=== PATIENT | female | born 1930 | race Caucasian/White ===

== ENCOUNTER 2019-10-13 06:23 | Outpatient (CLI) | payer MEDICARE, OTHER ==
[2019-10-13 12:49] LABS: #Monocytes 0.9 thou/uL (0.11-0.59); #Neutrophils 7.1 thou/uL (1.40-6.50); %Basophils 0.4 % (0.0-1.0); %Eosinophils 0.1 % (0.0-10.0); %Lymphocytes 10.5 % (21.0-51.0); %Monocytes 10.1 % (0.0-10.0); %Neutrophils 78.8 % (42.0-75.0); Hemoglobin 11.7 g/dL (12.0-16.0); Mean Corpuscular HGB CONC 32.8 g/dL (32.0-36.0); Mean Corpuscular Hemoglobin 31.3 pg (27.0-31.0); Mean Corpuscular Volume 95.5 fL (78.0-98.0); Mean Platelet Volume 7.9 fL (7.4-10.4); Platelet Count 206 thou/uL (130-400); RBC Distribution Width 13.2 % (11.5-14.5); Red Blood Cell (RBC) Count 3.74 mill/uL (4.20-5.40)
[2019-10-13 13:07] LABS: Anion Gap 12 mmol/L (10-20); BUN (Urea Nitrogen) 20 mg/dL (9.8-20.1); Calc. Creatinine Clearance 0 mL/min (70-130); Calcium 9.1 mg/dL (7.8-10.44); Carbon Dioxide 27 mmol/L (23-31); Chloride 98 mmol/L (98-107); Estimated GFR-MDRD 82; Glucose 92 mg/dL (83-110); Potassium 4.7 mmol/L (3.5-5.1); Sodium 132 mmol/L (136-145)
[2019-10-13 18:46] LABS: SARS-CoV-2 MS2 Positive; SARS-CoV-2 N Gene Negative; SARS-CoV-2 S Gene Negative; SARS-CoV-2 orf1ab Negative
--- NOTE | 2019-10-13 21:14 | EKG ---
Test Reason : Blood Pressure : / mmHG Vent. Rate : 071 BPM Atrial Rate : 071 BPM P-R Int : 148 ms QRS Dur : 130 ms QT Int : 416 ms P-R-T Axes : 070 045 032 degrees QTc Int : 452 ms Normal sinus rhythm Possible Left atrial enlargement Right bundle branch block Abnormal ECG No previous ECGs available Confirmed by Georgia RADFORD ([id number]) on 10/13/2019 9:13:24 PM Referred By: ADALBERTO Confirmed By:Georgia RADFORD
== END 2019-10-13 06:24 | disposition home or self-care (01) ==
LOC: LABBT 06:23
PROVIDERS: ATTEND Orthopaedic Surgery
DX: Z01.818 Encounter for other preprocedural examination (principal); Z11.59 Encounter for screening for other viral diseases; S82.002A Unspecified fracture of left patella, initial encounter for closed fracture
CPT/HCPCS: 80048; 85025; 93005; U0003; 87635; 93010

== ENCOUNTER 2019-10-15 09:27 | Inpatient (IN) | payer MEDICARE, OTHER ==
[2019-10-13 10:54] VITALS: BMI 19.7
[2019-10-15] MEDS ORDERED: Clindamycin/D5W 600 mg/50 ml Premix Bag ONE (10:25)
[2019-10-15] MEDS ORDERED: Ondansetron PF 4 MG/2 ML Vial IV PRN (12:24)
[2019-10-15] MEDS ORDERED: Bisacodyl 10 MG SUPP PR PRN (12:24)
[2019-10-15] MEDS ORDERED: traMADol HCl 50 MG TAB PO PRN (12:24)
[2019-10-15] MEDS ORDERED: Acetaminophen 325 MG TAB PO PRN (12:24)
[2019-10-15] MEDS ORDERED: Fentanyl 100 MCG/2 ML VIAL ONE ×4 (12:25→15:05)
[2019-10-15] MEDS ORDERED: Communication Order-Pharmacy FS SCH (12:30)
[2019-10-15] MEDS ORDERED: TETANUS AND DIPHTHERIA TOX/PF 0.5 ML DISP.SYRIN IM SCH (12:30)
[2019-10-15] MEDS ORDERED: Ondansetron PF 4 MG/2 ML Vial ONE (12:59)
[2019-10-15] MEDS ORDERED: Lidocaine 1% PF 5 ML VIAL ONE (12:59)
[2019-10-15] MEDS ORDERED: PROPOFOL 200 MG/20 ML VIAL ONE (12:59)
[2019-10-15] MEDS ORDERED: Dexamethasone 20 MG/5 ML VIAL ONE (12:59)
[2019-10-15] MEDS ORDERED: EPHEDRINE 25 MG/5 ML SYRINGE ONE (12:59)
--- NOTE | 2019-10-15 13:37 | RAD ---
LEFT KNEE TWO VIEWS: 10/15/19 HISTORY: ORIF left patella. FINDINGS/IMPRESSION: Two spot fluoroscopic images of the left knee demonstrates interval reduction and internal fixation o f the patellar fracture noted on 10/11/19. POS: C
[2019-10-15] MEDS ORDERED: hydrALAZINE 20 MG/ML VIAL ONE ×2 (13:44→13:45)
[2019-10-15] MEDS ORDERED: Promethazine HCl 25 MG/ML VIAL SLOW IVP PRN (13:46)
[2019-10-15] MEDS ORDERED: Ondansetron HCl/PF 4 MG/2 ML Vial IVP PRN (13:46)
[2019-10-15] MEDS ORDERED: Promethazine HCl 25 MG/ML VIAL IM PRN (13:46)
[2019-10-15] MEDS: HYDROcodone/Acetaminophen 5/325 mg Tablet PO PRN ×2 (16:34→22:16)
[2019-10-15] MEDS ORDERED: Prevnar 13-Val Conj/PF 0.5 ML SYRINGE IM ONE (18:00)
[2019-10-15] MEDS: Aspirin 81 mg Enteric Coated Tablet PO SCH (20:03)
[2019-10-15] MEDS: Vit A,C & E/Lutein/Minerals Tablet PO SCH (20:03)
[2019-10-16] MEDS: HYDROcodone/Acetaminophen 5/325 mg Tablet PO PRN ×3 (03:54→21:06)
[2019-10-16] MEDS: Levothyroxine Sodium 75 MCG TAB PO SCH (05:31)
--- NOTE | 2019-10-16 07:00 | OP ---
DATE OF PROCEDURE: 10/15/2019 PREOPERATIVE DIAGNOSIS: Displaced patella fracture, left knee. POSTOPERATIVE DIAGNOSIS: Displaced patella fracture, left knee. PROCEDURE PERFORMED: Open reduction and internal fixation of left patella using a tension band wire technique. EVP: Philip Gomez PA-C BLOOD LOSS: Minimal. SPECIMEN: None. COMPLICATIONS: None. DESCRIPTION OF PROCEDURE: The patient was taken to the operating room, where general anesthesia was induced. Left leg was prepped and draped in usual sterile fashion. After exsanguination, tourniquet was inflated to 300 mmHg. I made a longitudinal midline incision. This was carried down to the patella. I opened up the fracture site. I debrided the margins of the fracture and removed hematoma from the fracture site. Fracture was anatomically reduced. Two 0.062 K-wires were placed across the fracture. I placed a [id number] tension band wire deep to the transfixing pins using good compression technique. A #2 Vicryl suture was then used to close the retinaculum medially and laterally. Tourniquet was released. Irrigation was performed. Hemostasis was obtained. Subcutaneous tissue was closed with 3-0 Vicryl. Skin was closed with yue. Sterile dressing was applied. The patient was placed in a long leg splint. There were no complications. Job ID: [id number]
[2019-10-16] MEDS: Aspirin 81 mg Enteric Coated Tablet PO SCH ×2 (08:56→21:06)
[2019-10-16] MEDS: Vit A,C & E/Lutein/Minerals Tablet PO SCH ×2 (08:57→21:06)
[2019-10-16] MEDS: Multivitamin W/ Minerals 1 TAB PO SCH (08:57)
[2019-10-16] MEDS: Lisinopril 20 MG TAB PO SCH (08:57)
[2019-10-16] MEDS: traMADol HCl 50 MG TAB PO SCH (08:58)
[2019-10-17] MEDS: HYDROcodone/Acetaminophen 5/325 mg Tablet PO PRN ×3 (04:55→21:45)
[2019-10-17] MEDS: hydrALAZINE 20 MG/ML VIAL SLOW IVP PRN (04:55)
[2019-10-17] MEDS: Levothyroxine Sodium 75 MCG TAB PO SCH (05:01)
[2019-10-17] MEDS: Vit A,C & E/Lutein/Minerals Tablet PO SCH ×2 (08:31→21:45)
[2019-10-17] MEDS: Multivitamin W/ Minerals 1 TAB PO SCH (08:31)
[2019-10-17] MEDS: Aspirin 81 mg Enteric Coated Tablet PO SCH ×2 (08:31→21:45)
[2019-10-17] MEDS: traMADol HCl 50 MG TAB PO SCH (08:32)
[2019-10-17] MEDS: Lisinopril 20 MG TAB PO SCH (08:34)
[2019-10-17] MEDS: Milk Of Magnesia 30 ML UDCUP PO PRN (12:04)
[2019-10-18] MEDS: HYDROcodone/Acetaminophen 5/325 mg Tablet PO PRN ×2 (05:05→17:58)
[2019-10-18] MEDS: hydrALAZINE 20 MG/ML VIAL SLOW IVP PRN (05:06)
[2019-10-18] MEDS: Levothyroxine Sodium 75 MCG TAB PO SCH (05:06)
[2019-10-18] MEDS: Aspirin 81 mg Enteric Coated Tablet PO SCH ×2 (08:09→21:02)
[2019-10-18] MEDS: Multivitamin W/ Minerals 1 TAB PO SCH (08:09)
[2019-10-18] MEDS: Vit A,C & E/Lutein/Minerals Tablet PO SCH ×2 (08:09→21:02)
[2019-10-18] MEDS: Lisinopril 20 MG TAB PO SCH (08:10)
[2019-10-18] MEDS: traMADol HCl 50 MG TAB PO SCH (08:10)
[2019-10-18] MEDS: Milk Of Magnesia 30 ML UDCUP PO PRN (10:17)
[2019-10-19] MEDS: Levothyroxine Sodium 75 MCG TAB PO SCH (05:17)
[2019-10-19] MEDS: HYDROcodone/Acetaminophen 5/325 mg Tablet PO PRN (05:17)
[2019-10-19] MEDS: Lisinopril 20 MG TAB PO SCH (09:10)
[2019-10-19] MEDS: Aspirin 81 mg Enteric Coated Tablet PO SCH (09:10)
[2019-10-19] MEDS: Multivitamin W/ Minerals 1 TAB PO SCH (09:10)
[2019-10-19] MEDS: Vit A,C & E/Lutein/Minerals Tablet PO SCH (09:10)
[2019-10-19] MEDS: traMADol HCl 50 MG TAB PO SCH (09:10)
[2019-10-19] MEDS: hydrALAZINE 20 MG/ML VIAL SLOW IVP PRN (09:15)
[2019-10-19 15:04] VITALS: TEMP 97.8
[2019-10-19 15:55] VITALS: BP 170/60
--- NOTE | 2019-10-21 13:04 | DIS ---
DATE OF ADMISSION: 10/15/2019 DATE OF DISCHARGE: 10/19/2019 This is Philip Gomez PA-C dictating a report for Asad Vincent MD. PREOPERATIVE DIAGNOSIS: Left patella fracture. POSTOPERATIVE DIAGNOSIS: Left patella fracture. PROCEDURE: The patient underwent open reduction and internal fixation of left patella. HOSPITAL STAY: Unremarkable. The patient stayed with us for a period of time. She was a little bit frail and needed placement and further physical therapy, occupational therapy. She did well in the hospital, had no postop complications. DISCHARGE CONDITION: Good/stable. DISPOSITION: Rehab. FOLLOWUP: Followup would be in 10 to 14 days or sooner if there are problems and/or concerns. DISCHARGE MEDICATIONS: Discharge medications given with usage instructions. Job ID: [id number]
== END 2019-10-19 16:11 | DRG 517 ==
LOC: SDC 09:27 → SURG A 12:31
PROVIDERS: ADMIT Orthopaedic Surgery; ATTEND Orthopaedic Surgery
PROC: 0QSF04Z Reposition Left Patella with Internal Fixation Device, Open Approach (ICD-10-PCS; principal; 2019-10-15)
DX: S82.042A Displaced comminuted fracture of left patella, initial encounter for closed fracture (principal); Z11.59 Encounter for screening for other viral diseases; W19.XXXA Unspecified fall, initial encounter; I10 Essential (primary) hypertension; E78.5 Hyperlipidemia, unspecified; G43.909 Migraine, unspecified, not intractable, without status migrainosus; F41.9 Anxiety disorder, unspecified; Z88.0 Allergy status to penicillin; Z88.2 Allergy status to sulfonamides; Z90.710 Acquired absence of both cervix and uterus; Z90.49 Acquired absence of other specified parts of digestive tract; Z79.899 Other long term (current) drug therapy; Z01.818 Encounter for other preprocedural examination
CPT/HCPCS: 76000; 80048; 85025; 87635; 93005; J0360; J1100; J2001; J2405; J2704; J3010; J3490; U0003

== ENCOUNTER 2019-12-18 19:13 | Inpatient (IN) | payer MEDICARE, OTHER ==
[2019-12-18 20:38] LABS: #Lymphocytes 0.5 thou/uL (1.20-3.40); #Monocytes 0.5 thou/uL (0.11-0.59); #Neutrophils 4.2 thou/uL (1.40-6.50); %Basophils 0.4 % (0.0-1.0); %Eosinophils 0.4 % (0.0-10.0); %Lymphocytes 9.5 % (21.0-51.0); %Monocytes 9.4 % (0.0-10.0); %Neutrophils 80.3 % (42.0-75.0); Mean Corpuscular HGB CONC 33.9 g/dL (32.0-36.0); Mean Corpuscular Hemoglobin 32.5 pg (27.0-31.0); Mean Corpuscular Volume 95.8 fL (78.0-98.0); Mean Platelet Volume 6.5 fL (7.4-10.4); Platelet Count 298 thou/uL (130-400); RBC Distribution Width 15.1 % (11.5-14.5); Red Blood Cell (RBC) Count 2.77 mill/uL (4.20-5.40); White Blood Cell (WBC) Count 5.3 thou/uL (4.8-10.8)
[2019-12-18 20:39] LABS: PTT 23.7 sec (22.9-36.1); Prothrombin Time 13.4 sec (12.0-14.7)
[2019-12-18 20:49] LABS: Bacteria/HPF 4+ HPF (None Seen); Bilirubin Negative (Negative); Blood, Urine Negative (Negative); Clarity Clear (Clear); Glucose, Urine (Dipstick) Normal (Negative); Ketone, Urine Negative (Negative); Leukocyte 75 Leu/uL (Negative); Nitrite Negative (Negative); Protein, Urine (Dipstick) Negative (Neg-Trace); RBC/HPF 0-3 HPF (0-3); Specific Gravity, Urine 1.013 (1.002-1.036); Squamous Epithelial None Seen HPF (0-3); Urobilinogen Normal mg/dL (Less than 2)
[2019-12-18 20:57] LABS: ALT (SGPT) 66 U/L (8-55); AST (SGOT) 42 U/L (5-34); Albumin 3.6 g/dL (3.4-4.8); Alkaline Phosphatase 58 U/L (40-110); Anion Gap 13 mmol/L (10-20); BUN (Urea Nitrogen) 24 mg/dL (9.8-20.1); Bilirubin, Total 0.2 mg/dL (0.2-1.2); Calc. Creatinine Clearance 0 mL/min (70-130); Calcium 8.6 mg/dL (7.8-10.44); Carbon Dioxide 21 mmol/L (23-31); Chloride 95 mmol/L (98-107); Estimated GFR-MDRD 58; Globulin 2.2 g/dL (2.4-3.5); Glucose 108 mg/dL (83-110); Potassium 4.9 mmol/L (3.5-5.1); Protein, Total 5.8 g/dL (6.0-8.3); Sodium 124 mmol/L (136-145)
--- NOTE | 2019-12-18 20:59 | RAD ---
RIGHT KNEE: 12/18/19 Two views. HISTORY: Fall with injury. No fracture identified. Moderate degenerative changes. No joint effusion. IMPRESSION: No acute findings. POS: AGW
--- NOTE | 2019-12-18 21:01 | CT ---
CT CERVICAL SPINE WITHOUT CONTRAST: 12/18/19 INDICATIONS: Fall with injury to head and neck. Cervical vertebrae maintain height and alignment. Mild degenerative changes of the cervical spine. No evidence of cervical spine fracture. IMPRESSION: No evidence of fracture. POS: AGW
[2019-12-18] MEDS ORDERED: Ondansetron PF 4 MG/2 ML Vial IVP PRN (21:02)
[2019-12-18] MEDS ORDERED: Dextrose 5% in Water 1,000 ML IV PRN (21:02)
[2019-12-18] MEDS ORDERED: Dextrose 50% Abboject 50 ML SYRINGE SLOW IVP PRN (21:02)
[2019-12-18] MEDS ORDERED: hydrALAZINE 20 MG/ML VIAL SLOW IVP PRN ×2 (21:02)
[2019-12-18] MEDS ORDERED: HumaLOG 300 UNITS/3 ML VIAL SC PRN (21:02)
--- NOTE | 2019-12-18 21:02 | CT ---
CT HEAD WITHOUT CONTRAST: 12/18/19 INDICATIONS: Fall. Injury to head. There is cortical volume loss. No intracranial hemorrhage. No mass or edema. No evidence of acute inf arct. The paranasal sinuses are aerated. IMPRESSION: No acute abnormality identified. POS: AGW
--- NOTE | 2019-12-18 21:09 | RAD ---
RIGHT FEMUR: 12/18/19 Four views. HISTORY: Fall With injury. Comminuted displaced fracture of the proximal femur involving the intertrochanteric region of the pro ximal femur. The lesser trochanter is displaced medially. IMPRESSION: Comminuted displaced fracture proximal femur. POS: AGW
[2019-12-18] MEDS ORDERED: traMADol HCl 50 MG TAB PO PRN (21:20)
[2019-12-18] MEDS ORDERED: Acetaminophen 500 MG TAB PO SCH (23:59)
[2019-12-19] MEDS: Acetaminophen 500 MG TAB PO SCH ×4 (00:41→17:43)
[2019-12-19 01:29] VITALS: BMI 21.4
--- NOTE | 2019-12-19 02:53 | HP ---
This is Hu Glass PA-C dictating a report for Isrrael Alvarez MD. REQUESTING PHYSICIAN: Dr. Chad Hussein. CONSULTING PHYSICIAN: Dr. Hamilton. HISTORY OF PRESENT ILLNESS: Ms. Hernandez is an 88-year-old female presents to the ED via transfer from [facility]. The patient fell at home this morning, did not loss consciousness or hit her head, complained of right hip pain and unable to bear weight. Upon arrival in the ED, the patient is alert and awake, complaining of right hip pain. Vital signs stable. PAST MEDICAL HISTORY: Includes hypertension, hypothyroidism. PAST SURGICAL HISTORY: Thyroidectomy, bladder surgery. SOCIAL HISTORY: The patient denied drug use. Denies alcohol. Denies smoking history. The patient lives at home with family. CURRENT MEDICATIONS: 1. Synthroid. 2. Lisinopril. 3. Tramadol. Physical exam GENERAL: Currently, the patient is lying down in bed, comfortable with no acute respiratory distress. VITAL SIGNS: Temp 98 HR 68 PB 144/69 Osat 98 room air LUNGS: Clear bilaterally. HEART: Regular rate and rhythm. ABDOMEN: Soft, nondistended. EXTREMITIES: R hip pain , neurovascular intact x4 NEUROLOGY: no neurological deficit LAB: WC 5.3 Hb 9.0 Na 124 K 4.9 creatinine 0.91 Urine : UTI IMAGE: Comminuted displaced fracture R proximal femur ASSESSMENT: 1. Status post ground level fall 2. R hip fracture 3. Hyponatremia asymptomatic at admission 4. UTI uncomplicated at admission 5. History of HTN hypothyroid PLAN: Patient will be admitted to [place] [id number] Mckenzie plan to take the patient to the OR for R hip fracture fixation. NPO at midnight. Initiate mechanical DVT prophylaxis , gastritis prophylaxis. initiate Cipro for UTI NS IV for hyponatremia Job ID: [id number] MTDD
[2019-12-19] MEDS ORDERED: Ciprofloxacin 500 MG TAB PO SCH (06:45)
[2019-12-19] MEDS: Sodium Chloride 0.9% 1,000 ML IV SCH ×3 (07:28→15:37)
[2019-12-19] MEDS: Levothyroxine Sodium 75 MCG TAB PO SCH (07:29)
[2019-12-19] MEDS: Famotidine 20 MG TAB PO SCH ×2 (08:36→20:47)
[2019-12-19] MEDS: Ascorbic Acid 500 mg Chewable Tablet PO SCH ×2 (08:36→20:47)
[2019-12-19] MEDS: Gabapentin 300 MG CAP PO SCH ×2 (08:36→20:48)
[2019-12-19] MEDS: Ferrous Sulfate 325 MG TAB PO SCH ×2 (08:36→17:43)
[2019-12-19] MEDS: Polyethylene Glycol 3350 17 GM Packet PO SCH (08:37)
[2019-12-19] MEDS: Senokot S 8.6-50 MG TAB PO SCH ×2 (08:37→20:47)
[2019-12-19 08:52] LABS: #Lymphocytes 0.7 thou/uL (1.20-3.40); #Monocytes 0.6 thou/uL (0.11-0.59); #Neutrophils 5.6 thou/uL (1.40-6.50); %Basophils 0.4 % (0.0-1.0); %Eosinophils 0.6 % (0.0-10.0); %Lymphocytes 10.3 % (21.0-51.0); %Neutrophils 80.8 % (42.0-75.0); Hemoglobin 7.9 g/dL (12.0-16.0); Mean Corpuscular HGB CONC 34.1 g/dL (32.0-36.0); Mean Corpuscular Hemoglobin 32.9 pg (27.0-31.0); Mean Corpuscular Volume 96.6 fL (78.0-98.0); Mean Platelet Volume 6.5 fL (7.4-10.4); Platelet Count 256 thou/uL (130-400); RBC Distribution Width 15.3 % (11.5-14.5); White Blood Cell (WBC) Count 6.9 thou/uL (4.8-10.8)
[2019-12-19 08:54] LABS: Anion Gap 11 mmol/L (10-20); BUN (Urea Nitrogen) 20 mg/dL (9.8-20.1); Calc. Creatinine Clearance 49 mL/min (70-130); Calcium 8.4 mg/dL (7.8-10.44); Carbon Dioxide 21 mmol/L (23-31); Chloride 97 mmol/L (98-107); Estimated GFR-MDRD 73; Glucose 93 mg/dL (83-110); Magnesium 2.1 mg/dL (1.6-2.6); Phosphorus 3.5 mg/dL (2.3-4.7); Potassium 4.8 mmol/L (3.5-5.1); Sodium 124 mmol/L (136-145)
[2019-12-19] MEDS ORDERED: Rocuronium Bromide 10 MG/ML (10ML VIAL) ONE (10:13)
[2019-12-19] MEDS ORDERED: EPHEDRINE 25 MG/5 ML SYRINGE ONE (10:13)
[2019-12-19] MEDS ORDERED: Esmolol 100 MG/10 ML VIAL ONE (10:13)
[2019-12-19] MEDS ORDERED: PHENYLEPHRINE-NS 100 MCG/ML 10 ML SYRINGE ONE (10:13)
[2019-12-19] MEDS ORDERED: Lidocaine 1% PF 5 ML VIAL ONE (10:13)
[2019-12-19] MEDS ORDERED: PROPOFOL 200 MG/20 ML VIAL ONE (10:13)
[2019-12-19] MEDS ORDERED: Glycopyrrolate 0.2 MG/ML 5 ML SYRINGE ONE (10:13)
[2019-12-19] MEDS ORDERED: Clindamycin/D5W 900 mg/50 ml Premix Bag ONE (11:29)
[2019-12-19] MEDS ORDERED: Phenylephrine 10 MG/ML VIAL ONE (11:41)
[2019-12-19] MEDS ORDERED: Fentanyl 100 MCG/2 ML VIAL ONE (11:41)
[2019-12-19] MEDS ORDERED: Ondansetron HCl/PF 4 MG/2 ML Vial IVP PRN (12:29)
[2019-12-19] MEDS ORDERED: Promethazine HCl 25 MG/ML VIAL IM PRN (12:29)
[2019-12-19] MEDS ORDERED: Promethazine HCl 25 MG/ML VIAL SLOW IVP PRN (12:29)
[2019-12-19] MEDS ORDERED: Bupivacaine HCl 0.5%/Epinephrine 1:200,000/PF 30 ml Vial ONE (13:46)
[2019-12-19 14:57] LABS: Hemoglobin 6.4 g/dL (12.0-16.0)
--- NOTE | 2019-12-19 15:10 | CON ---
DATE OF CONSULTATION: 12/19/2019 HISTORY OF PRESENT ILLNESS: The patient is 88-year-old female, who fell at home earlier this morning and had immediate pain in the right hip region. The patient was seen in the emergency room and x-rays revealed comminuted subtrochanteric and proximal femoral shaft fracture. The patient has no neurologic complaints in the right lower extremity. PAST MEDICAL HISTORY: Medical illnesses; hypertension, hypothyroidism. PAST SURGICAL HISTORY: Thyroidectomy, bladder surgery. SOCIAL HISTORY: The patient lives at home with family. She does not use tobacco, alcohol, or street drugs. CURRENT MEDICATIONS: 1. Synthroid. 2. Lisinopril. 3. Tramadol. PHYSICAL EXAMINATION: In general, the patient is a pleasant female, cooperative with examination. The patient is able to move both upper extremities, left lower extremity without pain. Any intensive movement of the right hip causes pain. The right lower extremity is neurovascularly intact. She has swelling in the right hip and thigh, but no open wounds. IMPRESSION: Comminuted subtrochanteric and proximal femoral shaft fracture of the right femur. PLAN: The patient will require stabilization of the fracture, plan on using a long trochanteric fixation nail. I discussed the procedure with the patient as well as her son, Filiberto Hernandez, and they agreed to the procedure. Job ID: [id number]
--- NOTE | 2019-12-19 15:28 | OP ---
DATE OF PROCEDURE: 12/19/2019 PREOPERATIVE DIAGNOSIS: Comminuted subtrochanteric and proximal shaft fracture of the right femur. POSTOPERATIVE DIAGNOSIS: Comminuted subtrochanteric and proximal shaft fracture of the right femur. PROCEDURE PERFORMED: Intramedullary interlocking rodding of the right proximal femoral shaft using a long trochanteric fixation nail. ANESTHESIA: General. DESCRIPTION OF PROCEDURE: The patient was given preoperative IV antibiotics, taken to the operating room, placed in supine position. Satisfactory general anesthesia was performed. The patient was then placed on the fracture table in supine position. All bony prominences were well padded. Traction was applied to her well-padded right foot and ankle. C-arm was used to verify the alignment of the bone because of the iliopsoas proximal portion was significantly flexed whenever traction was applied. Despite manual manipulation, the fracture could not be reduced adequately. The right hip and thigh were sterilely prepped and draped in usual fashion. A longitudinal incision was made, starting proximal to the greater trochanter, then extending down into the proximal femoral shaft. A guidepin was placed through the greater trochanter, it was over-reamed and then attempts were made to reduce the fracture with a manipulating device in the proximal portion of the femur. It was unsuccessful and a bone clamp was needed to hold the bones in good position and then the guidewire was placed into the proximal femur crossing the fracture and into the distal aspect of the femur. Appropriate length chelle was measured at 360 mm and the femur was then sequentially reamed up to 12.5 mm. A Synthes trochanteric fixation nail that measured 11 mm x 360 mm was then inserted into the femur. A screw was placed into the proximal aspect of the chelle as well as the femoral neck and head and it was locked into place, and a 5.0 locking screw was placed distally. This was all performed under fluoroscopic visualization. This provided excellent reduction and fixation of the fractures. Wound was copiously irrigated and then closed using #2 Vicryl for the iliotibial band, #1 Vicryl for the deeper fatty layer, 0 Vicryl for the more superficial layer, and skin was closed with skin yue. Sterile dressing was applied. The patient was then awakened, extubated, and transferred to recovery room in stable condition. The patient was infiltrated around the right hip and thigh wound with 30 mL of 0.5% Marcaine with epinephrine prior to extubation. Job ID: [id number]
--- NOTE | 2019-12-19 17:06 | PDOC.CONS ---
- Consultation Service 1030 December 19, 2019 I have discussed the patient with the advanced practice provider and agree with the findings and plan of care annotated in their note dated December 19, 2019. I have examined the patient and reviewed the pertinent radiographic and laboratory findings. Briefly, this is an 88-year-old female who presented as a transfer from [facility] post fall from standing at home. No loss of consciousness; however, she did complain of right hip pain was unable to bear weight. She arrived with a GCS of 15 and hemodynamically stable. PLAN: Orthopedic surgery consulted. We will plan for ORIF of right hip. Hyponatremia: Asymptomatic will resuscitate with normal saline UTI: Ciprofloxacin DVT and ulcer prophylaxis
[2019-12-19] MEDS: Ciprofloxacin 500 MG TAB PO SCH (20:48)
[2019-12-19 21:45] LABS: Hemoglobin 6.7 g/dL (12.0-16.0); Platelet Count 205 thou/uL (130-400)
--- NOTE | 2019-12-20 00:06 | PDOC.BPN ---
- Brief Progress Note DATE OF SERVICE: 12/19/2019 SUBJECTIVE: Ms. Hernandez remains in surgical floor. The patient is status post ground level fall. She sustained R hip fracture. She underwent R hip fracture fixation. Post op patient hb dropped to 6.4 in which she was transfused 1 PRBC. Currently, she is awake and alert. She is able to eat by herself. Her vital signs have been stable. Her urine is adequate. OBJECTIVE: GENERAL: Currently, patient lying in bed comfortable with no acute respiratory distress. VITAL SIGNS: Stable. LUNGS: Clear bilaterally. HEART: Regular rate and rhythm. ABDOMEN: Soft, nondistended. EXTREMITIES: Neurovascularly intact x4. NEUROLOGY: GCS 115 post op dressing clean and dry Repeat h and h: hb 6.7 ASSESSMENT: 1. Status post ground level fall. 2. R hip fracture status post repaired 3. acute blood loss anemia PLAN: 1. Continue supportive care. 2. Continue pain control. 3. Continue nonpharmacological DVT prophylaxis. 4. transfused 1 PRBC 5 anticipate discharge to rehabilitation facility in 24- 48 hours
[2019-12-20] MEDS: Acetaminophen 500 MG TAB PO SCH ×4 (00:36→17:30)
[2019-12-20] MEDS: Sodium Chloride 0.9% 1,000 ML IV SCH ×3 (00:36→12:41)
[2019-12-20 04:53] LABS: #Lymphocytes 0.7 thou/uL (1.20-3.40); #Monocytes 0.5 thou/uL (0.11-0.59); #Neutrophils 3.2 thou/uL (1.40-6.50); %Basophils 0.5 % (0.0-1.0); %Eosinophils 0.9 % (0.0-10.0); %Lymphocytes 14.9 % (21.0-51.0); %Monocytes 10.6 % (0.0-10.0); %Neutrophils 73.1 % (42.0-75.0); Hemoglobin 8.6 g/dL (12.0-16.0); Mean Corpuscular HGB CONC 34.6 g/dL (32.0-36.0); Mean Corpuscular Hemoglobin 32.1 pg (27.0-31.0); Mean Corpuscular Volume 92.8 fL (78.0-98.0); Mean Platelet Volume 6.8 fL (7.4-10.4); Platelet Count 174 thou/uL (130-400); RBC Distribution Width 15.1 % (11.5-14.5); Red Blood Cell (RBC) Count 2.68 mill/uL (4.20-5.40); White Blood Cell (WBC) Count 4.4 thou/uL (4.8-10.8)
[2019-12-20] MEDS: Levothyroxine Sodium 75 MCG TAB PO SCH (05:45)
[2019-12-20] MEDS: Ciprofloxacin 500 MG TAB PO SCH ×2 (05:45→20:16)
[2019-12-20] MEDS: Famotidine 20 MG TAB PO SCH ×2 (08:34→20:16)
[2019-12-20] MEDS: Vit A,C & E/Lutein/Minerals Tablet PO SCH ×2 (08:34→20:16)
[2019-12-20] MEDS: Ascorbic Acid 500 mg Chewable Tablet PO SCH ×2 (08:34→20:16)
[2019-12-20] MEDS: Gabapentin 300 MG CAP PO SCH ×2 (08:34→20:16)
[2019-12-20] MEDS: Metoprolol Tartrate 25 MG TAB PO SCH (08:34)
[2019-12-20] MEDS: Ferrous Sulfate 325 MG TAB PO SCH ×2 (08:34→17:30)
[2019-12-20] MEDS: Lisinopril 20 MG TAB PO SCH (08:35)
[2019-12-20] MEDS: Senokot S 8.6-50 MG TAB PO SCH ×2 (08:35→20:16)
[2019-12-20] MEDS: Amlodipine 5 MG TAB PO SCH (08:35)
[2019-12-20] MEDS: Multivitamin W/ Minerals 1 TAB PO SCH (08:35)
[2019-12-20] MEDS: Polyethylene Glycol 3350 17 GM Packet PO SCH (08:36)
[2019-12-20] MEDS: Citalopram 10 MG TAB PO SCH (09:07)
--- NOTE | 2019-12-20 15:15 | PRG ---
DATE OF SERVICE: 12/20/2019 SUBJECTIVE: The patient has currently good pain control. She has been afebrile. Vital signs have been stable through the night. She underwent intramedullary interlocking rodding of the right proximal femoral shaft and is postoperative day #1 from that. OBJECTIVE: VITAL SIGNS: Temperature 98.5, pulse 74, respiratory rate 16, blood pressure 131/68, and O2 saturation 94% on room air. LABORATORY DATA: White count is 4.4, hemoglobin 8.6, hematocrit 24.8. The right lower extremity is neurovascularly intact. The dressing is clean and dry. The patient will work with Physical and Occupational Therapy. Gradual mobilization. We will recheck her blood count tomorrow. Job ID: [id number]
--- NOTE | 2019-12-20 21:22 | PDOC.BPN ---
- Brief Progress Note I have discussed the patient with the advanced practice provider and agree with the findings and plan of care annotated in their note dated 10/20/2019. I have examined the patient and reviewed the pertinent radiographic and laboratory findings. Briefly, 88-year-old female status post fall with right hip fracture. She underwent intramedullary nailing. She is doing well with no postoperative concerns. She received 1 unit of PRBCs for a low hemoglobin (6.7). Follow-up hemoglobin 8.7. PLAN: Continue physical therapy. Weightbearing as tolerated right lower extremity Monitor hemoglobin
--- NOTE | 2019-12-20 22:41 | PDOC.BPN ---
- Brief Progress Note DATE OF SERVICE: 12/20/2019 SUBJECTIVE: Ms. Hernandez remains in surgical floor. The patient is status post ground level fall. She sustained R hip fracture. She underwent R hip fracture fixation. Currently, she is awake and alert. She is able to eat by herself. Her vital signs have been stable. Her urine is adequate. repeat Hb 8 this morning OBJECTIVE: GENERAL: Currently, patient lying in bed comfortable with no acute respiratory distress. VITAL SIGNS: Stable. LUNGS: Clear bilaterally. HEART: Regular rate and rhythm. ABDOMEN: Soft, nondistended. EXTREMITIES: Neurovascularly intact x4. NEUROLOGY: GCS 115 post op dressing clean and dry Repeat h and h: Hb 8 ASSESSMENT: 1. Status post ground level fall. 2. R hip fracture status post repaired 3. acute blood loss anemia stable PLAN: 1. Continue supportive care. 2. Continue pain control. 3. Continue nonpharmacological DVT prophylaxis. 4. transfused 1 PRBC 5 anticipate discharge to rehabilitation facility in 24- 48 hours
[2019-12-21] MEDS: Sodium Chloride 0.9% 1,000 ML IV SCH ×4 (00:02→23:19)
[2019-12-21] MEDS: Acetaminophen 500 MG TAB PO SCH ×5 (01:01→23:12)
[2019-12-21 05:05] LABS: #Eosinphils 0.1 thou/uL (0.0-0.7); #Lymphocytes 0.7 thou/uL (1.20-3.40); #Monocytes 0.4 thou/uL (0.11-0.59); #Neutrophils 4.3 thou/uL (1.40-6.50); %Basophils 0.8 % (0.0-1.0); %Eosinophils 0.9 % (0.0-10.0); %Lymphocytes 12.9 % (21.0-51.0); %Monocytes 7.8 % (0.0-10.0); %Neutrophils 77.5 % (42.0-75.0); Hemoglobin 7.5 g/dL (12.0-16.0); Mean Corpuscular HGB CONC 33.4 g/dL (32.0-36.0); Mean Corpuscular Hemoglobin 31.3 pg (27.0-31.0); Mean Corpuscular Volume 93.8 fL (78.0-98.0); Mean Platelet Volume 6.6 fL (7.4-10.4); Platelet Count 198 thou/uL (130-400); RBC Distribution Width 15.5 % (11.5-14.5); White Blood Cell (WBC) Count 5.5 thou/uL (4.8-10.8)
[2019-12-21] MEDS: Ciprofloxacin 500 MG TAB PO SCH ×2 (05:05→20:57)
[2019-12-21] MEDS: Levothyroxine Sodium 75 MCG TAB PO SCH (05:05)
[2019-12-21 05:29] LABS: Anion Gap 9 mmol/L (10-20); BUN (Urea Nitrogen) 12 mg/dL (9.8-20.1); Calc. Creatinine Clearance 53 mL/min (70-130); Calcium 7.4 mg/dL (7.8-10.44); Carbon Dioxide 19 mmol/L (23-31); Chloride 107 mmol/L (98-107); Estimated GFR-MDRD 80; Glucose 100 mg/dL (83-110); Magnesium 1.9 mg/dL (1.6-2.6); Potassium 4.1 mmol/L (3.5-5.1); Sodium 131 mmol/L (136-145)
[2019-12-21] MEDS: Vit A,C & E/Lutein/Minerals Tablet PO SCH ×2 (09:44→20:59)
[2019-12-21] MEDS: Senokot S 8.6-50 MG TAB PO SCH ×2 (09:44→20:59)
[2019-12-21] MEDS: Famotidine 20 MG TAB PO SCH ×2 (09:44→20:58)
[2019-12-21] MEDS: Lisinopril 20 MG TAB PO SCH (09:45)
[2019-12-21] MEDS: Multivitamin W/ Minerals 1 TAB PO SCH (09:45)
[2019-12-21] MEDS: Polyethylene Glycol 3350 17 GM Packet PO SCH (09:45)
[2019-12-21] MEDS: Gabapentin 300 MG CAP PO SCH ×2 (09:45→20:58)
[2019-12-21] MEDS: Metoprolol Tartrate 25 MG TAB PO SCH (09:45)
[2019-12-21] MEDS: Citalopram 10 MG TAB PO SCH (09:45)
[2019-12-21] MEDS: Amlodipine 5 MG TAB PO SCH (09:45)
[2019-12-21] MEDS: Ferrous Sulfate 325 MG TAB PO SCH ×2 (09:45→17:17)
[2019-12-21] MEDS: Ascorbic Acid 500 mg Chewable Tablet PO SCH ×2 (09:45→20:58)
[2019-12-21] MEDS: traMADol HCl 50 MG TAB PO PRN (17:17)
--- NOTE | 2019-12-21 18:07 | PRG ---
DATE OF SERVICE: 12/21/2019 The patient is 2 days status post intramedullary interlocking rodding of the right proximal femoral shaft. She was awake and conversive at the time of my making rounds. She complained of some right hip pain. Latest vital signs; temperature 97.9, pulse 77, respiratory rate 18, blood pressure 148/69, and O2 saturation 94% on room air. The patient is able to flex and extend her right ankle and toes well and has good sensation. Laboratory; CBC shows white count of 5.5, hemoglobin 7.5, hematocrit 22.5. Sodium is a little low at 131, but is improved from the sodium from two days ago of 124. The patient is to work with Physical and Occupational Therapy. Case Management will work for placement for the patient. She may weightbear as tolerated on the right lower extremity and she has no hip precautions. Job ID: [id number]
--- NOTE | 2019-12-22 00:56 | PDOC.BPN ---
- Brief Progress Note DATE OF SERVICE: 12/21/2019 SUBJECTIVE: Ms. Hernandez remains in surgical floor. The patient is status post ground level fall. She sustained R hip fracture. She underwent R hip fracture fixation. Currently, she is awake and alert. She is able to eat by herself. Her vital signs have been stable. Her urine is adequate. OBJECTIVE: GENERAL: Currently, patient lying in bed comfortable with no acute respiratory distress. VITAL SIGNS: Stable. LUNGS: Clear bilaterally. HEART: Regular rate and rhythm. ABDOMEN: Soft, nondistended. EXTREMITIES: Neurovascularly intact x4. NEUROLOGY: GCS 115 post op dressing clean and dry Repeat h and h: Hb 8 ASSESSMENT: 1. Status post ground level fall. 2. R hip fracture status post repaired 3. acute blood loss anemia stable PLAN: 1. Continue supportive care. 2. Continue pain control. 3. Continue nonpharmacological DVT prophylaxis. 5 anticipate discharge to rehabilitation facility in 24- 48 hours
[2019-12-22 05:58] LABS: #Eosinphils 0.1 thou/uL (0.0-0.7); #Lymphocytes 0.9 thou/uL (1.20-3.40); #Monocytes 0.4 thou/uL (0.11-0.59); #Neutrophils 4.8 thou/uL (1.40-6.50); %Basophils 0.7 % (0.0-1.0); %Eosinophils 1.4 % (0.0-10.0); %Lymphocytes 14.9 % (21.0-51.0); %Monocytes 6.6 % (0.0-10.0); %Neutrophils 76.4 % (42.0-75.0); Hemoglobin 8.5 g/dL (12.0-16.0); Mean Corpuscular HGB CONC 32.8 g/dL (32.0-36.0); Mean Corpuscular Volume 94.7 fL (78.0-98.0); Mean Platelet Volume 6.5 fL (7.4-10.4); Platelet Count 244 thou/uL (130-400); RBC Distribution Width 15.5 % (11.5-14.5); Red Blood Cell (RBC) Count 2.75 mill/uL (4.20-5.40); White Blood Cell (WBC) Count 6.3 thou/uL (4.8-10.8)
[2019-12-22 06:17] LABS: Anion Gap 10 mmol/L (10-20); BUN (Urea Nitrogen) 10 mg/dL (9.8-20.1); Calc. Creatinine Clearance 56 mL/min (70-130); Calcium 8.1 mg/dL (7.8-10.44); Carbon Dioxide 19 mmol/L (23-31); Chloride 105 mmol/L (98-107); Estimated GFR-MDRD 86; Glucose 90 mg/dL (83-110); Phosphorus 2.2 mg/dL (2.3-4.7); Potassium 4.4 mmol/L (3.5-5.1); Sodium 130 mmol/L (136-145)
[2019-12-22] MEDS: Levothyroxine Sodium 75 MCG TAB PO SCH (06:20)
[2019-12-22] MEDS: Acetaminophen 500 MG TAB PO SCH ×2 (06:20→11:14)
[2019-12-22] MEDS ORDERED: Aspirin 81 mg Enteric Coated Tablet PO SCH (09:00)
--- NOTE | 2019-12-22 09:00 | PRG ---
DATE OF SERVICE: 12/21/2019 SUBJECTIVE: Ms. Hernandez remains on the surgical floor. The patient is status post ground level fall. She sustained a right hip fracture. She underwent right hip fracture fixation on 12/18 and is postop day 2. Currently, she is awake and alert. OBJECTIVE: VITAL SIGNS: Temp 98.2, pulse 83, blood pressure 147/68, respiratory rate 16, and O2 saturation is 93 on room air. GENERAL: The patient is awake, alert, and oriented. Currently, reports a 7/10 pain. HEAD: Normocephalic, atraumatic. HEART: Regular rate and rhythm. No murmur. LUNGS: Clear to auscultation bilaterally. ABDOMEN: Soft, nondistended. EXTREMITIES: Neurovascularly intact x4. Postop dressing clean and dry. NEUROLOGIC: GCS of 15. LABORATORY DATA: Hemoglobin of 7.5, currently stable. ASSESSMENT: 1. Status post ground level fall. 2. Right hip fracture, status post fixation, postop day 2. 3. Acute blood loss anemia, stable. PLAN: Continue supportive care. We will increase pain control regimen to Tylenol 650 mg and tramadol 50 mg scheduled to help with pain control. We will continue vitamin C and ferrous sulfate for anemia. The patient was transfused 1 packed red blood cell unit. We will discharge to a rehab facility hopefully in [place] in the next few days. Job ID: [id number] [facility]
[2019-12-22] MEDS: Vit A,C & E/Lutein/Minerals Tablet PO SCH (09:14)
[2019-12-22] MEDS: Polyethylene Glycol 3350 17 GM Packet PO SCH (09:14)
[2019-12-22] MEDS: Multivitamin W/ Minerals 1 TAB PO SCH (09:15)
[2019-12-22] MEDS: Lisinopril 20 MG TAB PO SCH (09:15)
[2019-12-22] MEDS: Citalopram 10 MG TAB PO SCH (09:15)
[2019-12-22] MEDS: Gabapentin 300 MG CAP PO SCH (09:15)
[2019-12-22] MEDS: Senokot S 8.6-50 MG TAB PO SCH (09:15)
[2019-12-22] MEDS: Ferrous Sulfate 325 MG TAB PO SCH ×2 (09:15→17:08)
[2019-12-22] MEDS: Metoprolol Tartrate 25 MG TAB PO SCH (09:15)
[2019-12-22] MEDS: Amlodipine 5 MG TAB PO SCH (09:15)
[2019-12-22] MEDS: Ascorbic Acid 500 mg Chewable Tablet PO SCH ×3 (09:16→17:08)
[2019-12-22] MEDS: Sodium Chloride 0.9% 1,000 ML IV SCH ×2 (09:16→13:34)
[2019-12-22] MEDS: traMADol HCl 50 MG TAB PO PRN (09:19)
[2019-12-22] MEDS: Famotidine 20 MG TAB PO SCH (10:07)
--- NOTE | 2019-12-22 14:43 | RAD ---
RIGHT FEMUR: Five fluoroscopic images are presented from the OR during intraoperative imaging. INDICATION: Intraoperative imaging during open reduction and internal fixation. FINDINGS/IMPRESSION: These images reveal intramedullary chelle placed in the right femur and pin placed in the femoral neck. POS: AH
[2019-12-22 16:32] VITALS: BP 145/70; TEMP 97.9
[2019-12-22] MEDS ORDERED: Acetaminophen 500 MG TAB PO SCH (18:00)
[2019-12-22] MEDS ORDERED: traMADol HCl 50 MG TAB PO SCH (18:00)
--- NOTE | 2019-12-23 02:37 | DIS ---
DATE OF ADMISSION: 12/18/2019 DATE OF DISCHARGE: 12/22/2019 DISCHARGING PHYSICIAN: Jasmeet Alfonso DO CONSULTING PHYSICIAN: Zander Hamilton MD with Orthopedic Surgery. PROCEDURE PERFORMED: Open reduction and internal fixation of the right hip fracture. ADMITTING DIAGNOSIS: Right hip fracture. DISCHARGE DIAGNOSES: 1. Right hip fracture. 2. Acute blood loss anemia, stable. 3. Ground level fall. HOSPITAL COURSE: Ms. Hernandez is an 88-year-old female admitted from nursing home facility for right hip fracture. Mechanical fall. She was taken to the OR, had ORIF, successful fixation. She was pain controlled, tolerating a diet, and voiding on the date of discharge. The patient is going to a different nursing home facility as her facility had a COVID-19 outbreak, she was tested negative at our facility. She is going to be discharged today. DISCHARGE MEDICATIONS: 1. Cinnamon 1000 mg q.6. 2. Amlodipine 5 mg. 3. Vitamin C 500 mg. 4. Aspirin 81 mg b.i.d.. 5. Celexa 10 mg. 6. Iron 325 mg b.i.d.. 7. Gabapentin 300 mg b.i.d. 8. Synthroid 75 mcg daily. 9. Lisinopril 20 mg daily. 10. Metoprolol 25 mg daily. 11. Stool softeners. 12. Tramadol 50 mg every 6. DISCHARGE PLAN: Will be to the [place]. PHYSICAL EXAMINATION: VITAL SIGNS: On the day of discharge, temperature is 97.9, blood pressure 145/70, heart rate is 74, breathing 16 times per minute, saturating 95% on room air. GENERAL: 88-year-old female, sitting up in bed, in no acute distress. HEENT: Normocephalic and atraumatic. RESPIRATORY: Equal rise and fall. No respiratory distress. CARDIOVASCULAR: Regular rate and rhythm. ABDOMEN: Soft and nontender. Pelvis is stable. She does have surgical scar noted. Dry dressing. EXTREMITIES: Moves her extremities. Has sensation in all extremities. NEUROLOGIC: Alert. SKIN: Warm and dry. LABORATORY DATA: On the day of discharge, white blood cell count is 6.3, platelets are 244, hemoglobin and hematocrit are 8.5 and 26.1 respectively. Sodium is 130, potassium 4.4, chloride is 105, CO2 is 19, BUN is 10, creatinine is 0.65, glucose is 90, calcium is 8.1. FOLLOWUP: 1. Follow up will be with Dr. Hamilton in 2 weeks. 2. PCP as needed. Return precautions were listed. The patient was taken by ambulance to [place]. Greater than 30 minutes was taken in discharge planning of this patient. Job ID: [id number]
== END 2019-12-22 19:10 | DRG 481 ==
LOC: ERS 19:13 → SURG A 21:06
PROVIDERS: ADMIT Surgery; ATTEND Surgery
PROC: 0QS806Z Reposition Right Femoral Shaft with Intramedullary Internal Fixation Device, Open Approach (ICD-10-PCS; principal; 2019-12-19)
PROC: 30233N1 Transfusion of Nonautologous Red Blood Cells into Peripheral Vein, Percutaneous Approach (ICD-10-PCS; 2019-12-19)
DX: S72.21XA Displaced subtrochanteric fracture of right femur, initial encounter for closed fracture (principal); N39.0 Urinary tract infection, site not specified; E87.1 Hypo-osmolality and hyponatremia; D62 Acute posthemorrhagic anemia; S72.351A Displaced comminuted fracture of shaft of right femur, initial encounter for closed fracture; W18.30XA Fall on same level, unspecified, initial encounter; I10 Essential (primary) hypertension; E03.9 Hypothyroidism, unspecified; Z79.890 Hormone replacement therapy; Z79.899 Other long term (current) drug therapy
CPT/HCPCS: 36415; 36430; 70450; 72125; 76000; 80048; 80053; 81003; 81015; 82533; 83735; 84100; 84484; 85025; 85610; 85730; 86850; 86900; 86901; 93005; C1713; G0390; J0360; J0670; J2370; J2704; J3010; J3490; P9016

== ENCOUNTER 2020-03-15 18:57 | Inpatient (IN) | payer MEDICARE, OTHER ==
[2020-03-15] MEDS ORDERED: Ondansetron ODT 4 MG TAB PO PRN (21:46)
[2020-03-15] MEDS ORDERED: Ondansetron PF 4 MG/2 ML Vial IVP PRN (21:46)
[2020-03-15] MEDS ORDERED: Dextrose 50% Abboject 50 ML SYRINGE SLOW IVP PRN (21:46)
[2020-03-15] MEDS ORDERED: Dextrose 5% in Water 1,000 ML IV PRN (21:46)
[2020-03-15] MEDS ORDERED: traMADol HCl 50 MG TAB PO PRN (21:49)
[2020-03-15 22:37] VITALS: BMI 22.3
[2020-03-15] MEDS: Cyclobenzaprine 10 MG TAB PO PRN (22:40)
[2020-03-15] MEDS: Acetaminophen 500 MG TAB PO SCH (22:41)
--- NOTE | 2020-03-16 01:14 | HP ---
ATTENDING: Dr. Adiran Julian. REQUESTING PHYSICIAN: Martin Alcantar MD CONSULTS: Orthopedic Surgery, Augustin Ledbetter MD CHIEF COMPLAINT: Ground level fall, right hip and knee pain. HISTORY OF PRESENT ILLNESS: This is an 89-year-old female, who was a transfer from [facility] after a ground level fall from her assisted living facility, [facility] in [place]. It was reported that the patient fell from her bed. This was not a witnessed fall. It is unknown if the patient hit her head or lost consciousness. The patient has no obvious injuries. The patient is currently wheelchair bound since having surgery from a mechanical fall in November of this year, in which she had a comminuted subtrochanteric and proximal shaft fracture of the right femur. The patient's fracture was repaired by Dr. Hamilton with an intramedullary interlocking rodding. The patient continues to have right hip pain, but mostly now complaining of right knee pain. Right hip films were performed at [facility] showing no definitive fracture. The emergency room at [facility] attempted to get the patient placed at [facility], but there were no available beds. Trauma Services were asked to admit the patient for pain control until the patient could get placed to inpatient rehab. I did reach out with Orthopedics, Dr. Ledbetter, who was commercial or institutional cleaner, who is reviewing x-rays and we will reach out with Dr. Hamilton as he is the one who did the previous surgery. The patient denies any chest pain or shortness of breath. The patient denies having any dizziness, chest pain, lightheadedness prior to falling. REVIEW OF SYSTEMS: A 10-point review of systems is negative unless otherwise indicated in the above HPI. PAST MEDICAL HISTORY: Hypothyroidism, hypertension, dementia. SURGICAL HISTORY: Bladder surgery, thyroidectomy. SOCIAL HISTORY: Lives at [facility], the patient is wheelchair bound. ALLERGIES: INCLUDE PENICILLIN AND SULFA. CURRENT MEDICATIONS: 1. Metoprolol tartrate 25 mg twice a day. 2. Acetaminophen 500 mg q.6 hours as needed. 3. Alendronate 10 mg once a day. 4. Amlodipine 5 mg b.i.d. 5. Vitamin C 500 mg b.i.d. 6. Aspirin 81 mg once a day. 7. Citalopram 20 mg daily. 8. Clindamycin 300 mg 3 times a day. 9. Ferrous sulfate 325 mg b.i.d.. 10. Florastor 250 mg b.i.d. 11. Gabapentin 300 mg b.i.d. 12. Hydrochlorothiazide 25 mg daily. 13. Levothyroxine 75 mcg daily. 14. Lisinopril 20 mg b.i.d. 15. Pepcid 20 mg b.i.d. wrist. 16. Risperidone 0.25 mg 2 times a day. 17. Senokot as needed. OBJECTIVE: VITAL SIGNS: Temperature 98.4, pulse 83, respirations 18, SpO2 of 98% on 2 L nasal cannula, blood pressure 152/62. GENERAL: Well-appearing elderly female, awake, alert, in no distress. Oriented to person and year only, which is baseline per son. HEENT: Head is atraumatic, normocephalic. Pupils are equal bilaterally. NECK: No JVD, trachea midline. No cervical spine tenderness. Normal range of motion. RESPIRATORY: Good inspiratory and expiratory effort. Bilateral breath sounds clear. No wheezing, rales, or rhonchi. No obvious deformity. CARDIOVASCULAR: Regular rate, regular rhythm. No murmurs. No pedal edema. ABDOMEN: Soft, nontender, nondistended. EXTREMITIES: Moves all extremities. Sensation intact. Neurovascularly intact x4. Right lower extremity is mildly shorter. Distal pulses intact. Tenderness to right hip and knee. NEUROLOGIC: GCS 14, -1 for confusion. DIAGNOSTICS: Pelvis x-ray, impression: No evidence of acute osseous abnormality. Right hip x-ray, impression: No evidence of acute osseous abnormalities. Right hip shows hardware in the proximal femur spanning the previous seen fracture of the femur. The fracture appears healed and there is a moderate amount of heterotopic ossifications around the fracture site. Diffuse soft tissue swelling is seen. Chest x-ray, impression: Left pleural effusion with adjacent atelectasis. ASSESSMENT: 1. Status post ground level fall. 2. Right hip and knee pain, no obvious fracture. 3. Acute traumatic pain. 4. History of hypothyroidism and hypertension and recent right subtrochanteric and proximal shaft fracture of the right femur, status post repair. PLAN: 1. Observation. 2. Pain management. 3. Diet as tolerated. 4. Waiting plan from Orthopedic surgery to see if additional scans need to be done as the patient is continuing to have pain. 5. Obtain a right knee x-ray. 6. PT/OT to evaluate and treat. The plan was discussed with the patient, son and the attending who agree. Job ID: [id number] MTDD
[2020-03-16] MEDS: Acetaminophen 500 MG TAB PO SCH ×4 (04:55→23:58)
[2020-03-16] MEDS ORDERED: Lisinopril 20 MG TAB PO SCH (05:00)
[2020-03-16 05:25] LABS: Hemoglobin 9.7 g/dL (12.0-16.0); Mean Corpuscular HGB CONC 31.6 g/dL (32.0-36.0); Mean Corpuscular Hemoglobin 31.2 pg (27.0-31.0); Mean Corpuscular Volume 98.7 fL (78.0-98.0); Mean Platelet Volume 6.9 fL (7.4-10.4); Platelet Count 289 thou/uL (130-400); RBC Distribution Width 13.5 % (11.5-14.5); White Blood Cell (WBC) Count 3.6 thou/uL (4.8-10.8)
[2020-03-16 05:41] LABS: Phosphorus 3.6 mg/dL (2.3-4.7)
[2020-03-16 05:45] LABS: Anion Gap 10 mmol/L (10-20); BUN (Urea Nitrogen) 14 mg/dL (9.8-20.1); Calc. Creatinine Clearance 53 mL/min (70-130); Calcium 8.5 mg/dL (7.8-10.44); Carbon Dioxide 26 mmol/L (23-31); Chloride 102 mmol/L (98-107); Estimated GFR-MDRD 79; Glucose 84 mg/dL (83-110); Magnesium 2.2 mg/dL (1.6-2.6); Potassium 3.9 mmol/L (3.5-5.1); Sodium 134 mmol/L (136-145)
[2020-03-16] MEDS ORDERED: Levothyroxine Sodium 75 MCG TAB PO SCH (07:15)
[2020-03-16] MEDS ORDERED: Senokot S 8.6-50 MG TAB PO SCH (09:00)
[2020-03-16] MEDS ORDERED: Famotidine 20 MG TAB PO SCH (09:00)
--- NOTE | 2020-03-16 09:07 | RAD ---
EXAM: 4 views of the right knee HISTORY: Knee pain after fall COMPARISON: None FINDINGS: No knee effusion is seen. There is no evidence of acute fracture or dislocation. Hardware i s seen in the distal femur. Mild tricompartmental osteophytes are seen. Mild diffuse soft tissue swelling is seen. IMPRESSION: No evidence of acute osseous abnormality.
[2020-03-16] MEDS: Gabapentin 300 MG CAP PO SCH ×2 (09:11→20:44)
[2020-03-16] MEDS: Lisinopril 20 MG TAB PO SCH ×3 (09:11→20:44)
[2020-03-16] MEDS: Metoprolol Tartrate 25 MG TAB PO SCH ×2 (09:11→20:44)
[2020-03-16] MEDS: Ferrous Sulfate 325 MG TAB PO SCH ×2 (09:11→16:59)
[2020-03-16] MEDS: Famotidine 20 MG TAB PO SCH (09:11)
[2020-03-16] MEDS: Senokot S 8.6-50 MG TAB PO SCH ×2 (09:11→20:43)
[2020-03-16] MEDS: Citalopram 20 MG TAB PO SCH (09:12)
[2020-03-16] MEDS: Saccharomyces boulardii 250 MG CAP PO SCH ×2 (09:20→20:44)
[2020-03-16] MEDS: Aspirin 81 mg Enteric Coated Tablet PO SCH ×2 (09:20→20:43)
[2020-03-16] MEDS: Amlodipine 5 MG TAB PO SCH ×2 (09:20→20:44)
[2020-03-16] MEDS: risperiDONE 0.25 MG TAB PO SCH ×2 (09:20→20:43)
[2020-03-16] MEDS: Hydrochlorothiazide 25 MG TAB PO SCH (09:20)
[2020-03-16] MEDS: Polyethylene Glycol 3350 17 GM Packet PO SCH (09:21)
[2020-03-16] MEDS ORDERED: Ibuprofen 600 MG TAB PO PRN (10:52)
[2020-03-16 11:14] LABS: SARS-CoV-2 MS2 Positive; SARS-CoV-2 N Gene Negative; SARS-CoV-2 S Gene Negative; SARS-CoV-2 by NAA Not Detected (NotDetected); SARS-CoV-2 orf1ab Negative
--- NOTE | 2020-03-16 12:19 | ULT ---
BILATERAL LOWER EXTREMITY VENOUS DUPLEX STUDY: Date: 03/16/2020 INDICATION: Lower extremity pain and edema. FINDINGS: Deep veins of both lower extremities evaluated with ultrasound and Doppler with color Doppler and spe ctral analysis and compression. Deep veins of both lower extremities show normal blood flow and compression. No evidence of deep veno us thrombosis. IMPRESSION: Negative bilateral lower extremity venous duplex exam. POS: AGW
[2020-03-16] MEDS: traMADol HCl 50 MG TAB PO SCH ×2 (12:48→18:26)
--- NOTE | 2020-03-16 16:01 | PRG ---
DATE OF SERVICE: 03/16/2020 SUBJECTIVE: The patient is currently on the surgical floor. She was admitted yesterday, status post ground level fall, in which, she sustained right hip and knee pain. The patient underwent evaluation and examination at the emergency department in [place], where her radiographs showed an indeterminate fracture of her right hip. It was complicated by the hardware in place. A CT was unable to be obtained as it would unlikely answer the question of fracture or not. The patient was transferred to our facility for orthopedic evaluation. She underwent radiographs of her right knee, which were unremarkable. She would be admitted to the hospital for pain control. Begin working with physical and occupational therapy and await placement. PHYSICAL EXAMINATION: VITAL SIGNS: Temperature is 98.6, heart rate 67, blood pressure 147/66, respirations 16, and oxygen saturations 96% on room air. GENERAL: The patient is resting comfortably in bed. She was asleep upon I entering the room. She did awaken and her Tarsha Coma Scale was 14, -1 for confusion. We are told that this is her baseline. She has not worked with Physical and Occupational Therapy. She reports that she is still having pain in her right hip and we will make modifications to her pain regimen. HEENT: Unremarkable. LUNGS: Clear to auscultation bilaterally. Respirations are nonlabored. HEART: Regular rate and rhythm. ABDOMEN: Soft, nontender with active bowel sounds. EXTREMITIES: Neurovascularly intact x4. LABORATORY FINDINGS: White blood cell count 3.6, hemoglobin 9.7, hematocrit 30.6, platelets 289. Sodium 134, potassium 3.9, chloride 102, CO2 of 26, BUN 14, creatinine 0.70, glucose 84. SARS-CoV-2 PCR is not detected. RADIOGRAPHIC FINDINGS: Views of the right knee are unremarkable. Venogram is negative for DVT. ASSESSMENT: 1. Status post ground level fall. 2. Right hip pain, status post open reduction and internal fixation on 12/19/2019 with no obvious new fracture. 3. Right knee pain with no obvious fracture. 4. Acute traumatic pain, modifications to pain regimen done. 5. History of hypothyroidism and hypertension. PLAN: Plan will be to continue pain management, pulmonary toilet, gastritis, mechanical VTE prophylaxis. We will encourage physical and occupational therapy and evaluate the patient for placement. The patient did undergo ultrasound to rule out DVT and as previously reported, this was negative. The patient was evaluated this morning with Dr. Alfonso during rounds. Job ID: [id number]
[2020-03-16] MEDS: Ascorbic Acid 500 mg Chewable Tablet PO SCH (16:59)
[2020-03-16] MEDS ORDERED: FLU VACC QS2020-21(65YR UP)/PF 240 MCG/0.7 ML SYRINGE IM ONE (21:00)
[2020-03-16] MEDS ORDERED: traMADol HCl 50 MG TAB PO PRN (23:27)
[2020-03-17] MEDS: Acetaminophen 500 MG TAB PO SCH ×4 (05:30→23:16)
[2020-03-17] MEDS: Levothyroxine Sodium 75 MCG TAB PO SCH (05:30)
[2020-03-17] MEDS: Lisinopril 20 MG TAB PO SCH ×2 (08:47→20:28)
[2020-03-17] MEDS: Ferrous Sulfate 325 MG TAB PO SCH ×2 (08:47→18:28)
[2020-03-17] MEDS: Senokot S 8.6-50 MG TAB PO SCH ×2 (08:47→20:33)
[2020-03-17] MEDS: risperiDONE 0.25 MG TAB PO SCH ×2 (08:47→20:33)
[2020-03-17] MEDS: Polyethylene Glycol 3350 17 GM Packet PO SCH (08:47)
[2020-03-17] MEDS: Citalopram 20 MG TAB PO SCH (08:48)
[2020-03-17] MEDS: Amlodipine 5 MG TAB PO SCH ×2 (08:48→20:30)
[2020-03-17] MEDS: Hydrochlorothiazide 25 MG TAB PO SCH (08:48)
[2020-03-17] MEDS: Metoprolol Tartrate 25 MG TAB PO SCH ×2 (08:48→20:33)
[2020-03-17] MEDS: Gabapentin 300 MG CAP PO SCH ×2 (08:48→20:33)
[2020-03-17] MEDS: Saccharomyces boulardii 250 MG CAP PO SCH ×2 (08:48→20:33)
[2020-03-17] MEDS: Ascorbic Acid 500 mg Chewable Tablet PO SCH ×2 (08:48→18:27)
[2020-03-17] MEDS: Aspirin 81 mg Enteric Coated Tablet PO SCH ×2 (08:48→20:33)
[2020-03-17] MEDS: Famotidine 20 MG TAB PO SCH (08:48)
[2020-03-17] MEDS: traMADol HCl 50 MG TAB PO SCH ×2 (14:01→23:20)
[2020-03-17] MEDS ORDERED: Amlodipine 5 MG TAB PO SCH ×2 (23:30→23:45)
[2020-03-18] MEDS ORDERED: hydrALAZINE 25 MG TAB PO PRN (00:02)
--- NOTE | 2020-03-18 01:59 | PRG ---
DATE OF SERVICE: 03/17/2020 SUBJECTIVE: The patient was seen during evening rounds, awake, alert, in no distress. The patient is pleasantly confused, which is baseline. The patient continues to complain of some mild right knee pain. OBJECTIVE: VITAL SIGNS: Mildly hypertensive, afebrile. PLAN: Continue supportive care and pain regimen. Continue physical and occupational therapy. We will increase the patient's Norvasc to 10 mg b.i.d. as the patient has been hypertensive. The patient is pending placement to halfway facility. Job ID: [id number]
[2020-03-18] MEDS: Acetaminophen 500 MG TAB PO SCH ×3 (05:50→18:06)
[2020-03-18] MEDS: Levothyroxine Sodium 75 MCG TAB PO SCH (05:50)
--- NOTE | 2020-03-18 06:43 | PRG ---
DATE OF SERVICE: 03/17/2020 SUBJECTIVE: The patient was seen on morning rounds. The patient presented after ground level fall causing pain in the right knee and hip. The patient underwent radiographs of the right knee, which were unremarkable. No obvious new fracture of her right hip, status post ORIF on 12/19/2019. The patient was admitted for pain control. She reports that she is still having some right knee pain today, but reports that she slept well overnight. She has had good p.o. intake. No nausea or vomiting. OBJECTIVE: VITAL SIGNS: Temperature 98.6 Fahrenheit, pulse 60 beats per minute, O2 saturation 95 on room air, respiratory rate 17, blood pressure 166/70. GENERAL: The patient is resting comfortably in bed. GCS of 14, -1 for confusion. We were told that this is her baseline. The patient worked with Physical Therapy and OT yesterday. The patient was not able to tolerate functional mobility, gait, strength, activity tolerance as compared to reported PLOF and skilled PT on acute care was recommended. The patient states she is still having pain in her right hip and we will make modifications to her pain regimen. HEENT: Unremarkable. LUNGS: Clear to auscultation bilaterally. Respirations are nonlabored. HEART: Regular rate and rhythm. ABDOMEN: Soft, tender with active bowel sounds. EXTREMITIES: Neurovascularly intact x4. LABORATORY FINDINGS: No new lab values. ASSESSMENT: 1. Status post ground level fall. 2. Right hip pain, status post open reduction and internal fixation on 12/19/2019 with no obvious new fracture. 3. Right knee pain with no obvious fracture. 4. Acute traumatic pain, modifications of pain regimen done. 5. History of hypothyroidism and hypertension. PLAN: We will make adjustments in her pain medication, adding gabapentin and scheduling her tramadol. We will continue mechanical VTE prophylaxis. We will continue to encourage PT, OT. The patient is being evaluated for a SNF, Case Management on board. This patient was evaluated this morning with Dr. Alfonso during rounds. The patient is agreeable to plan. Job ID: [id number] MTDD
[2020-03-18] MEDS: Metoprolol Tartrate 25 MG TAB PO SCH ×2 (08:58→21:32)
[2020-03-18] MEDS: Famotidine 20 MG TAB PO SCH (08:58)
[2020-03-18] MEDS: risperiDONE 0.25 MG TAB PO SCH ×2 (08:58→21:31)
[2020-03-18] MEDS: Ascorbic Acid 500 mg Chewable Tablet PO SCH ×2 (08:59→18:07)
[2020-03-18] MEDS: Lisinopril 20 MG TAB PO SCH ×2 (08:59→21:31)
[2020-03-18] MEDS: Aspirin 81 mg Enteric Coated Tablet PO SCH ×2 (08:59→21:31)
[2020-03-18] MEDS: Ferrous Sulfate 325 MG TAB PO SCH ×2 (08:59→18:07)
[2020-03-18] MEDS: Saccharomyces boulardii 250 MG CAP PO SCH ×2 (08:59→21:32)
[2020-03-18] MEDS: Gabapentin 300 MG CAP PO SCH ×2 (08:59→21:32)
[2020-03-18] MEDS: Hydrochlorothiazide 25 MG TAB PO SCH (08:59)
[2020-03-18] MEDS: Citalopram 20 MG TAB PO SCH (08:59)
[2020-03-18] MEDS: Polyethylene Glycol 3350 17 GM Packet PO SCH (09:00)
[2020-03-18] MEDS: Senokot S 8.6-50 MG TAB PO SCH ×2 (09:00→21:31)
[2020-03-18] MEDS: traMADol HCl 50 MG TAB PO SCH ×3 (18:07→22:00)
--- NOTE | 2020-03-18 20:21 | PRG ---
DATE OF SERVICE: 03/18/2020 SUBJECTIVE: The patient was seen this morning during rounds. She was sitting up in bed with no signs of acute distress. She reported her pain is well controlled. She is tolerating her diet. The patient is currently pending insurance authorization for residential facility. OBJECTIVE: VITAL SIGNS: Temperature 98.1, pulse 75, respirations 18, oxygen saturation 96% on room air, blood pressure 152/68. GENERAL: Well-appearing elderly female, sitting up in bed with no signs of acute distress. PULMONARY: Equal chest rise and fall. Clear breath sounds bilaterally. No signs of acute respiratory distress. CARDIAC: Regular rate and rhythm. GI: Abdomen is soft, nontender, nondistended. EXTREMITIES: 2+ pulses in all extremities. Gross motor and sensation intact. No significant swelling noted. NEURO: GCS is 14. This is her baseline. LABORATORY FINDINGS: There are no new laboratory findings to discuss. DIAGNOSTIC FINDINGS: There are no new diagnostic findings to discuss. ASSESSMENT: 1. Status post fall from bed. 2. Right hip pain. 3. Right knee pain. 4. History of dementia, hypothyroidism, hypertension, and proximal femur fracture in November. PLAN: Continue current diet and pain regimen. Continue physical and occupational therapy. The patient is ready for discharge at this time and she is pending approval at the [facility]. Job ID: [id number]
[2020-03-18] MEDS ORDERED: Ibuprofen 200 MG TAB PO PRN (21:45)
[2020-03-19] MEDS: Acetaminophen 500 MG TAB PO SCH ×5 (00:31→23:45)
--- NOTE | 2020-03-19 04:34 | PRG ---
DATE OF SERVICE: The patient remains on the surgical floor. She is status post a fall in which she sustained what was initially concerning for periprosthetic hip fracture. Her radiographs were reviewed and discussion was had with Orthopedics and felt that it would be treated nonoperatively if there were a fracture there. The patient has been awaiting placement. The day team reports that she was denied inpatient rehab and Family and Case Management are now working toward a skilled facility. Otherwise, the nurses do not report any issues tonight at the time of my visit. Her vital signs were stable. She was resting comfortably in bed. PLAN: Will be to continue supportive care, encourage physical and occupational therapy and await placement decision. Job ID: [id number]
[2020-03-19] MEDS: Levothyroxine Sodium 75 MCG TAB PO SCH (05:09)
[2020-03-19] MEDS: traMADol HCl 50 MG TAB PO SCH ×3 (06:44→23:44)
[2020-03-19] MEDS: Lisinopril 20 MG TAB PO SCH ×2 (08:39→20:02)
[2020-03-19] MEDS: Hydrochlorothiazide 25 MG TAB PO SCH (08:40)
[2020-03-19] MEDS: Ascorbic Acid 500 mg Chewable Tablet PO SCH ×2 (08:40→17:18)
[2020-03-19] MEDS: Aspirin 81 mg Enteric Coated Tablet PO SCH ×2 (08:40→20:04)
[2020-03-19] MEDS: Senokot S 8.6-50 MG TAB PO SCH ×2 (08:40→20:04)
[2020-03-19] MEDS: Amlodipine 5 MG TAB PO SCH ×2 (08:40→20:03)
[2020-03-19] MEDS: risperiDONE 0.25 MG TAB PO SCH ×2 (08:40→20:04)
[2020-03-19] MEDS: Metoprolol Tartrate 25 MG TAB PO SCH ×2 (08:40→20:03)
[2020-03-19] MEDS: Saccharomyces boulardii 250 MG CAP PO SCH ×2 (08:40→20:04)
[2020-03-19] MEDS: Polyethylene Glycol 3350 17 GM Packet PO SCH (08:40)
[2020-03-19] MEDS: Famotidine 20 MG TAB PO SCH (08:40)
[2020-03-19] MEDS: Citalopram 20 MG TAB PO SCH (08:41)
[2020-03-19] MEDS: Gabapentin 300 MG CAP PO SCH ×2 (08:41→20:04)
[2020-03-19] MEDS: Ferrous Sulfate 325 MG TAB PO SCH ×2 (08:41→17:18)
--- NOTE | 2020-03-19 16:54 | PRG ---
DATE OF SERVICE: 03/19/2020 SUBJECTIVE: The patient was seen this morning during rounds. She was sitting up in bed with no signs of acute distress. She reported she has most significantly sharp and leg pain to her right knee when doing physical therapy. Otherwise, pain control, tolerating a diet and voiding without difficulties. The patient is sleeping well overnight. OBJECTIVE: VITAL SIGNS: Temperature 98.4, pulse 70, respirations 14, oxygen saturation 93% on room air, and blood pressure 144/73. GENERAL: Well-appearing elderly female, sitting up in bed with no signs of acute distress. PULMONARY: Equal chest rise and fall. Clear breath sounds bilaterally. No signs of acute respiratory distress. CARDIAC: Regular rate and rhythm. GI: Abdomen is soft, nontender, nondistended. EXTREMITIES: 2+ pulses in all extremities. Gross and motor sensation are intact. No significant swelling noted. NEUROLOGIC: GCS is 15. LABORATORY FINDINGS: There are no new laboratory findings to discuss. DIAGNOSTIC FINDINGS: There are no new diagnostic findings to discuss. ASSESSMENT: 1. Status post fall from bed. 2. Right hip pain. 3. Right knee pain. 4. Pressure ulcer heal and buttocks. 5. History of dementia. 6. Hypothyroidism. 7. Hypertension. 8. Right proximal femur fracture, status post repair. PLAN: Continue current diet and pain regimen. Continue physical and occupational therapy. Continue supportive care. The patient is pending discharge to a senior living facility. She is ready for discharge at this time. Job ID: [id number] MTDD
[2020-03-19] MEDS ORDERED: Melatonin 3 MG TAB PO PRN (19:41)
--- NOTE | 2020-03-20 06:08 | PRG ---
DATE OF SERVICE: 03/20/2020 The patient remains on the surgical floor. She was admitted after a ground level fall in which she was believed to have a periprosthetic hip fracture. This is being treated nonoperatively and she has been awaiting placement. The patient has been working with physical and occupational therapy. Her pain is controlled. She is tolerating a diet and she is awaiting placement. Tonight, there were no reported issues. The patient's vital signs are stable and she is afebrile. At the time of my visit, the patient was resting comfortably. She was asleep and appeared in no distress. PLAN: Plan will be to continue supportive care and await placement decision. Job ID: [id number]
[2020-03-20] MEDS: Levothyroxine Sodium 75 MCG TAB PO SCH (06:28)
[2020-03-20] MEDS: Acetaminophen 500 MG TAB PO SCH ×3 (06:28→17:26)
[2020-03-20] MEDS: traMADol HCl 50 MG TAB PO SCH ×3 (06:29→21:29)
[2020-03-20] MEDS: Lisinopril 20 MG TAB PO SCH ×2 (08:50→20:16)
[2020-03-20] MEDS: Hydrochlorothiazide 25 MG TAB PO SCH (08:50)
[2020-03-20] MEDS: Ferrous Sulfate 325 MG TAB PO SCH ×2 (08:51→17:26)
[2020-03-20] MEDS: Amlodipine 5 MG TAB PO SCH ×2 (08:51→21:35)
[2020-03-20] MEDS: Ascorbic Acid 500 mg Chewable Tablet PO SCH ×2 (08:51→17:26)
[2020-03-20] MEDS: Gabapentin 300 MG CAP PO SCH ×2 (08:51→20:16)
[2020-03-20] MEDS: Saccharomyces boulardii 250 MG CAP PO SCH ×2 (08:51→20:17)
[2020-03-20] MEDS: Aspirin 81 mg Enteric Coated Tablet PO SCH ×2 (08:51→20:16)
[2020-03-20] MEDS: risperiDONE 0.25 MG TAB PO SCH ×2 (08:51→20:16)
[2020-03-20] MEDS: Metoprolol Tartrate 25 MG TAB PO SCH ×2 (08:51→21:35)
[2020-03-20] MEDS: Citalopram 20 MG TAB PO SCH (08:51)
[2020-03-20] MEDS: Senokot S 8.6-50 MG TAB PO SCH ×2 (08:51→21:35)
[2020-03-20] MEDS: Famotidine 20 MG TAB PO SCH (08:51)
[2020-03-20] MEDS: Polyethylene Glycol 3350 17 GM Packet PO SCH (08:53)
--- NOTE | 2020-03-20 15:39 | PRG ---
DATE OF SERVICE: 03/20/2020 SUBJECTIVE: The patient was seen this morning during rounds. She was lying in bed, resting comfortably and asleep, easily arousable. Nursing reports no acute events. OBJECTIVE: VITAL SIGNS: Temperature 99.5, pulse 69, respirations 16, oxygen saturation 99% on room air, blood pressure 145/65. GENERAL: Well-appearing elderly female, lying in bed, resting comfortably and asleep with no signs of acute distress. PULMONARY: Equal chest rise and fall. Clear breath sounds bilaterally. No signs of acute respiratory distress. CARDIAC: Regular rate and rhythm. GASTROINTESTINAL: Abdomen is soft, nontender, and nondistended. EXTREMITIES: 2+ pulses in all extremities. Gross motor and sensation are intact. No significant swelling noted. NEUROLOGIC: GCS is 14, -1 for confusion. This is her baseline. LABORATORY FINDINGS: There are no new laboratory findings to discuss. DIAGNOSTIC FINDINGS: There are no new diagnostic findings to discuss. ASSESSMENT: 1. Status post fall from bed. 2. Right hip pain. 3. Right knee pain. 4. Ulcer to right heel and buttock. 5. History of dementia, hypothyroidism, hypertension, right proximal femur fracture repair in November of this year. PLAN: Continue current diet and pain regimen. Continue physical and occupational therapy. Continue supportive care. The patient is pending discharge to a fpc facility. She is ready for discharge at this time. Job ID: [id number]
[2020-03-20] MEDS: Cyclobenzaprine 10 MG TAB PO PRN (21:28)
[2020-03-21] MEDS: Acetaminophen 500 MG TAB PO SCH ×3 (01:34→12:49)
[2020-03-21] MEDS: Levothyroxine Sodium 75 MCG TAB PO SCH (06:03)
[2020-03-21] MEDS: traMADol HCl 50 MG TAB PO SCH ×2 (06:04→14:34)
[2020-03-21] MEDS: Ascorbic Acid 500 mg Chewable Tablet PO SCH (08:25)
[2020-03-21] MEDS: Ferrous Sulfate 325 MG TAB PO SCH (08:25)
[2020-03-21] MEDS: Hydrochlorothiazide 25 MG TAB PO SCH (09:42)
[2020-03-21] MEDS: Aspirin 81 mg Enteric Coated Tablet PO SCH (09:42)
[2020-03-21] MEDS: Gabapentin 300 MG CAP PO SCH (09:42)
[2020-03-21] MEDS: Amlodipine 5 MG TAB PO SCH (09:43)
[2020-03-21] MEDS: Senokot S 8.6-50 MG TAB PO SCH (09:43)
[2020-03-21] MEDS: Metoprolol Tartrate 25 MG TAB PO SCH (09:43)
[2020-03-21] MEDS: Polyethylene Glycol 3350 17 GM Packet PO SCH (09:43)
[2020-03-21] MEDS: risperiDONE 0.25 MG TAB PO SCH (09:43)
[2020-03-21] MEDS: Famotidine 20 MG TAB PO SCH (09:43)
[2020-03-21] MEDS: Saccharomyces boulardii 250 MG CAP PO SCH (09:43)
[2020-03-21] MEDS: Citalopram 20 MG TAB PO SCH (09:43)
[2020-03-21] MEDS: Lisinopril 20 MG TAB PO SCH (09:43)
[2020-03-21 15:33] VITALS: BP 125/48; TEMP 98.7
--- NOTE | 2020-03-22 06:16 | PRG ---
DATE OF SERVICE: 03/21/2020 SUBJECTIVE: The patient was admitted after a ground level fall, where she injured her right knee and hip with no obvious fracture on XR. The patient has been working with physical and occupational therapy. Her pain is controlled. She is tolerating diet and awaiting placement. No acute issues overnight. The patient was seen on morning rounds. OBJECTIVE: VITAL SIGNS: Temperature 97.8 Fahrenheit, pulse 69, respiratory rate 14, O2 saturation 94 on room air. Blood pressure 150/61. GENERAL: Well-appearing elderly female, lying in bed, resting comfortably with no signs of acute distress. PULMONARY: Equal chest rise and fall. Clear breath sounds bilaterally. No signs of acute respiratory distress. CARDIAC: Regular rate and rhythm. Gastrointestinal : Abdomen soft, nontender, nondistended. EXTREMITIES: 2+ pulses in all extremities. Gross motor and sensation are intact. No significant swelling noted. NEUROLOGIC: GCS is 14, -1 for confusion. This is her baseline. LABORATORY FINDINGS: There are no new laboratory findings or diagnostic findings to discuss. ASSESSMENT: 1. Status post fall from bed. 2. Right hip pain. 3. Right knee pain. 4. Ulcer to right heel and buttock. 5. History of dementia, hypothyroidism, hypertension, right proximal femur fracture repair in November of this year. PLAN: Continue current diet and pain regimen. Continue physical and occupational therapy. Continue supportive care. The patient is being discharged to a snf facility. She is ready for discharge at this time. The patient was seen and evaluated by Dr. Alfonso during morning rounds. Discussed plan of care with the patient and family, who are in agreement. Job ID: [id number] [facility]
--- NOTE | 2020-03-23 13:31 | DIS ---
DATE OF ADMISSION: 03/17/2020 DATE OF DISCHARGE: 03/21/2020 ADMITTING RESIDENT: Lanette Mills DO ADMITTING ATTENDING: Greg Julian MD DISCHARGE ATTENDING: Dr. Alfonso. CONSULT: Orthopedic Surgery, Dr. Ledbetter. PROCEDURES: None. PRIMARY DIAGNOSIS: Right hip and knee pain, status post fall. SECONDARY DIAGNOSES: 1. Acute traumatic pain. 2. Status post ORIF of right hip on 12/19/2019. 3. Hypothyroidism. 4. Hypertension. DISCHARGE MEDICATIONS: 1. Amlodipine 5 mg p.o. b.i.d. 2. Ascorbic acid 500 mg p.o. b.i.d. 3. Aspirin 81 mg p.o. b.i.d. 4. Citalopram 20 mg p.o. daily. 5. Cyclobenzaprine 5 mg p.o. t.i.d. p.r.n. 6. Ferrous sulfate 325 mg p.o. b.i.d. with meals. 7. Gabapentin 300 mg p.o. b.i.d. 8. Hydrochlorothiazide 25 mg p.o. daily. 9. Levothyroxine 75 mcg p.o. daily. 10. Lisinopril 20 mg one tab p.o. b.i.d. 11. Melatonin 3 mg p.o. at bedtime p.r.n. 12. Metoprolol tartrate 25 mg p.o. b.i.d. 13. Polyethylene glycol 17 g p.o. daily. 14. Risperidone 0.25 mg p.o. b.i.d. 15. Florastor 250 mg p.o. b.i.d. 16. Tramadol 50mg p.o. q.8 hours prn. 17. Acetaminophen 1000 mg p.o. q.6 hours. 18. Alendronate sodium 10 mg p.o. daily-a.c. 19. Famotidine 20 mg p.o. b.i.d. 20. Senokot one tab p.o. b.i.d. 8.6 mg/50 mg tab. DISCONTINUED MEDICATIONS: None. HISTORY OF PRESENT ILLNESS/HOSPITAL COURSE: This is an 89-year-old female, transferred from [facility] after ground fall from her assisted living facility [facility] in [place]. The patient fell from bed and witnessed. The patient is currently wheelchair bound since having surgery from a mechanical fall in November of this year, where she had a comminuted subtrochanteric and proximal shaft fracture of her right femur. The patient's fracture was repaired by Dr. Hamilton with an intramedullary interlocking rodding. Right hip films performed at [facility] showed no definitive fracture. X-ray of the right knee was negative for fracture. Bilateral lower extremity venous duplex study was negative. The patient's hip pain was treated nonoperatively as the patient has worked with Physical and Occupational Therapy and remained awaiting placement at a fdc facility with her pain that was well controlled. PHYSICAL EXAMINATION: Vitals on discharge; temperature 98.5 Fahrenheit, pulse 64 beats per minute, respiratory rate 16, O2 saturation 94% on room air, and blood pressure 151/62. GENERAL: Well-appearing elderly female, lying in bed, resting comfortably. PULMONARY: Equal chest rise and fall. Clear breath sounds bilaterally. No signs of acute respiratory distress. CARDIAC: Regular rate and rhythm. GI: Abdomen is soft, nontender, nondistended. Normoactive bowel sounds. EXTREMITIES: 2+ pulses in all extremities. Gross motor and sensation intact. NEUROLOGIC: GCS is 14, -1 for confusion, this is her baseline. DISPOSITION: Stable. DISCHARGE INSTRUCTIONS: 1. Location: The patient will go to [facility]. 2. Diet: Regular. 3. Activity: Ad sam. 4. Followup: Follow up with Dr. Hamilton in the next 7-14 days. Job ID: [id number] [facility]
== END 2020-03-21 16:29 | DRG 555 ==
LOC: ERS 18:57 → SURG A 20:47 → OBSVTOIN 03-17 14:47
PROVIDERS: ADMIT Emergency Medicine; ATTEND Surgery
DX: M25.551 Pain in right hip (principal); L89.613 Pressure ulcer of right heel, stage 3; M25.561 Pain in right knee; Z20.828 Contact with and (suspected) exposure to other viral communicable diseases; Z23 Encounter for immunization; E03.9 Hypothyroidism, unspecified; I10 Essential (primary) hypertension; F03.90 Unspecified dementia, unspecified severity, without behavioral disturbance, psychotic disturbance, mood disturbance, and anxiety; L89.312 Pressure ulcer of right buttock, stage 2; W06.XXXA Fall from bed, initial encounter; Z99.3 Dependence on wheelchair; Z88.0 Allergy status to penicillin; Z88.2 Allergy status to sulfonamides; Z79.899 Other long term (current) drug therapy; Z87.890 Personal history of sex reassignment
CPT/HCPCS: 36415; 80048; 83735; 84100; 85027; 87635; 90471; 90662; 93970; 99284; G0008; G0378; U0003